=== PATIENT | female | born 1980 | race Asian ===

== ENCOUNTER → 2018-11-04 | Outpatient (REF) | payer OTHER ==
[~2018-11-04] MED LIST: ACYCLOVIR800 MG PO; ALLERGY10 M1 PO; AMOXICILLIN500 MG PO; CIPROFLOXACN500 MG PO; DOXYCYCL HYC100 MG PO; MEDDOSEPAK PO; PRILOSEC40 MG PO
[2018-11-04 11:07] LABS: ALBUMIN 5.3 g/dL (3.2-5.0); ALKALINE PHOSPHATASE 68 u/l (38-126); ANION GAP 17 (6-22 (CALC)); BILIRUBIN, TOTAL 0.8 mg/dL (0.0-1.4); BUN 12 mg/dL (7-17); BUN/CREATININE RATIO 20 (12-20 (CALC)); CALCULATED LDLCHOLESTEROL 153 mg/dL (62-129 (CALC)); CARBON DIOXIDE 27 mmol/l (22-30); CHLORIDE 102 mmol/l (95-108); CHOLESTEROL HDL RATIO 3.8 (<4.4 (CALC)); CREATININE 0.6 mg/dL (0.5-1.0); GFR > 60 ML/MIN (>=60 (CALC)); GFR FOR AFR.AMER. > 60 ML/MIN (>=60 (CALC)); HDL CHOLESTEROL 62 mg/dL (>=40); POTASSIUM 4.2 mmol/l (3.5-5.1); SGOT/AST 33 u/l (14-36); SODIUM 141 mmol/l (137-146); TOTAL CHOLESTEROL 237 mg/dl (0-199); TOTAL PROTEIN 8.9 g/dL (6.3-8.2); TOTAL TRIGLYCERIDES 111 mg/dl (30-149); VLDL CHOLESTROL 22 mg/dl (1-41 (CALC))
== END | disposition home or self-care (01) | DRG 642 ==
LOC: LAB 10:24
PROVIDERS: ATTEND Family Medicine
DX: E78.5 Hyperlipidemia, unspecified (principal); E55.9 Vitamin D deficiency, unspecified; Z00.00 Encounter for general adult medical examination without abnormal findings

== ENCOUNTER → 2018-12-08 | Outpatient (REF) | END | disposition home or self-care (01) | DRG 951 | LOC: LAB 06:33 | PROVIDERS: ATTEND Family Medicine | DX: Z02.6 Encounter for examination for insurance purposes (principal) ==